=== PATIENT | female | born 1935 | race Caucasian/White ===

== ENCOUNTER 2025-03-14 22:34 | Observation (INO) | payer SELFPAY ==
[2025-03-14 23:45] VITALS: BMI 18.8
[2025-03-15] MEDS ORDERED: Acetaminophen 325 MG TAB PO PRN (01:05)
[2025-03-15] MEDS ORDERED: Ondansetron PF 4 MG/2 ML Vial IVP PRN (01:05)
[2025-03-15] MEDS ORDERED: Calcium Carbonate 500 MG ChewTAB PO PRN (01:05)
[2025-03-15] MEDS ORDERED: Electrolyte Replacement Protocol 1 EACH FS SCH (01:15)
[2025-03-15] MEDS ORDERED: PHOS-NAK 1 PKT PACK PO PRN (01:30)
[2025-03-15] MEDS ORDERED: Potassium Chloride 20 MEQ in Premix 1 BAG IVPB PRN (01:30)
[2025-03-15] MEDS ORDERED: Magnesium 2 GM/50 ML(in water) 2 GM in Premix 1 BAG IVPB PRN (01:30)
[2025-03-15 09:09] LABS: Hematocrit 27.0 % (36.0-47.0); Hemoglobin 8.7 g/dL (12.0-16.0); Mean Corpuscular Hemoglobin 29.1 pg (27.0-31.0); Mean Corpuscular Volume 90.3 fL (78.0-98.0); Platelet Count 108 10x3/uL (130-400); Red Blood Cell (RBC) Count 2.99 mill/uL (4.20-5.40); White Blood Cell (WBC) Count 3.83 10x3/uL (4.8-10.8)
[2025-03-15 09:14] LABS: ALT (SGPT) 305 U/L (Less than 34); AST (SGOT) 259 U/L (11-34); Albumin 3.0 g/dL (3.1-4.5); Alkaline Phosphatase 94 U/L (40-110); Anion Gap 12 mmol/L (10-20); BUN (Urea Nitrogen) 24 mg/dL (9.8-20.1); Bilirubin, Total 0.6 mg/dL (0.3-1.2); Calc. Creatinine Clearance 43 mL/min (70-130); Calcium 7.9 mg/dL (7.8-10.44); Carbon Dioxide 26 mmol/L (23-31); Chloride 107 mmol/L (98-107); Globulin 2.6 g/dL (2.4-3.5); Glucose 96 mg/dL (83-110); Potassium 3.5 mmol/L (3.5-5.1); Sodium 141 mmol/L (136-145)
[2025-03-15 09:50] LABS: Anisocytosis MODERATE=16-30 cells HPF (0-5); Macrocytosis SLIGHT = 6-15 cells HPF (0-5); Platelet Adequacy Comment Platelets Decreased; RBC Morphology Within Normal Limits
[2025-03-16 11:12] LABS: INR-International Normal Ratio 1.1; Prothrombin Time 14.2 sec (12.0-14.7)
[2025-03-16 11:13] LABS: #Basophils Less than 0.03 10x3/uL (0.0-0.2); #Eosinophils 0.04 10x3/uL (0.0-0.7); #Monocytes 0.36 10x3/uL (0.11-0.59); #Neutrophils 2.66 10x3/uL (1.40-6.50); %Basophils 0.3 % (0.0-1.0); %Eosinophils 1.1 % (0.0-10.0); %Lymphocytes 16.1 % (21.0-51.0); %Monocytes 9.8 % (0.0-10.0); %Neutrophils 72.4 % (42.0-75.0); Hematocrit 25.5 % (36.0-47.0); Hemoglobin 8.2 g/dL (12.0-16.0); Mean Corpuscular Hemoglobin 29.5 pg (27.0-31.0); Mean Corpuscular Volume 91.7 fL (78.0-98.0); PTT 29.8 sec (22.9-36.1); Platelet Count 100 10x3/uL (130-400); Red Blood Cell (RBC) Count 2.78 mill/uL (4.20-5.40); White Blood Cell (WBC) Count 3.67 10x3/uL (4.8-10.8)
[2025-03-16 11:15] LABS: ALT (SGPT) 192 U/L (Less than 34); AST (SGOT) 111 U/L (11-34); Albumin 2.8 g/dL (3.1-4.5); Alkaline Phosphatase 83 U/L (40-110); Anion Gap 12 mmol/L (10-20); BUN (Urea Nitrogen) 19 mg/dL (9.8-20.1); Bilirubin, Direct 0.2 mg/dL (0.1-0.3); Bilirubin, Total 0.3 mg/dL (0.3-1.2); Calc. Creatinine Clearance 45 mL/min (70-130); Calcium 8.0 mg/dL (7.8-10.44); Carbon Dioxide 27 mmol/L (23-31); Chloride 107 mmol/L (98-107); Glucose 81 mg/dL (83-110); Magnesium 1.9 mg/dL (1.6-2.6); Potassium 3.6 mmol/L (3.5-5.1); Sodium 142 mmol/L (136-145)
[2025-03-16 11:19] VITALS: BMI 18.8
[2025-03-16 11:38] LABS: Hep A IgM AB NONREACTIVE (NonReactive); Hep A IgM S/CO 0.21 S/CO (0-0.79); Hep B Core IgM Index 0.09 S/CO (0-0.79); Hep B Surf Ag NONREACTIVE S/CO (NonReactive); Hep C IgG Ab NONREACTIVE S/CO (NonReactive); Hep C Index 0.12 S/CO (0-0.79)
[2025-03-16 11:50] LABS: Macrocytosis SLIGHT = 6-15 cells HPF (0-5); Ovalocytes SLIGHT = 2-5 cells HPF (0-1); Platelet Adequacy Comment Platelets Decreased; Polychromasia SLIGHT = 2-3 cells HPF (0-2)
[2025-03-16 16:12] VITALS: BP 156/93; TEMP 97.7
== END 2025-03-16 16:19 | disposition home or self-care (01) ==
LOC: T4-A 23:21
PROVIDERS: ADMIT Student in an Organized Health Care Education/Training Program; ATTEND Internal Medicine
DX: A41.9 Sepsis, unspecified organism (principal); R65.21 Severe sepsis with septic shock; R79.89 Other specified abnormal findings of blood chemistry; R74.01 Elevation of levels of liver transaminase levels; I10 Essential (primary) hypertension; G93.41 Metabolic encephalopathy; D69.6 Thrombocytopenia, unspecified; D64.9 Anemia, unspecified; F03.90 Unspecified dementia, unspecified severity, without behavioral disturbance, psychotic disturbance, mood disturbance, and anxiety; Z88.0 Allergy status to penicillin; Z79.899 Other long term (current) drug therapy
CPT/HCPCS: 36415; 51701; 51798; 76705; 80048; 80053; 80074; 80076; 82140; 83036; 83735; 85025; 85610; 85730; 86850; 86900; 86901; 87040; G0378; J7120